=== PATIENT | male | born 1995 | race Asian ===

== ENCOUNTER 2024-06-12 20:07 | Emergency (ER) | payer BC, OTHER ==
[2024-06-12] MEDS ORDERED: Sulfameth/Trimethoprim DS 800-160mg TAB ONE (20:56)
[2024-06-12] MEDS ORDERED: Naproxen 500 MG TAB ONE (20:56)
== END 2024-06-12 21:05 | disposition home or self-care (01) ==
LOC: NAV ERS 20:07
DX: L03.317 Cellulitis of buttock (principal)
CPT/HCPCS: 99282